=== PATIENT | female | born 1990 | race African-American/Black ===

== ENCOUNTER 2019-12-19 12:12 | Emergency (ER) | payer SELFPAY ==
[~2019-12-19] VITALS: Ht 175.3 cm; Wt 77.0 kg
[2019-12-19 12:37] VITALS: BP 120/80
[2019-12-19 12:45] LABS: BASOPHILS % 0.5 % (0.0-2.0); EOSINOPHILS % 0.2 % (0.0-5.0); HEMATOCRIT. 34.3 % (36.0-48.0); MEAN CORPUSCULAR HEMOGLOBIN 33.9 pg (28.0-32.0); MEAN CORPUSCULAR VOLUME 97.1 fL (81.0-99.0); MEAN PLATELET VOLUME 8.4 fl (7.4-10.4); MONOCYTES % 6.6 % (2.0-8.0); NEUTROPHILS % 72.7 % (40.0-76.0); PLATELET 280 x1000/uL (130-400); RED BLOOD CELL COUNT 3.53 mill/uL (4.2-5.4); RED CELL DISTRIBUTION WIDTH 12.7 % (11.6-14.6)
[2019-12-19 12:49] LABS: CHLORIDE 106 mEq/L (98-107)
[2019-12-19 12:54] LABS: ETHANOL BLOOD < 10 mg/dL
== END 2019-12-19 16:46 | disposition home or self-care (01) ==
LOC: ER 12:12
DX: R45.1 Restlessness and agitation (principal); F17.200 Nicotine dependence, unspecified, uncomplicated; F15.21 Other stimulant dependence, in remission
CPT/HCPCS: 36415; 80053; 80307; 80320; 80329; 81025; 85025; 99283; G0480